=== PATIENT | male | born 1970 | race Caucasian/White ===

== ENCOUNTER → 2021-03-08 | Outpatient (REF) ==
--- NOTE | 2021-03-08 13:04 | REP ---
INDICATION: DDD COMPARISON: None. TECHNIQUE: Five views right knee. FINDINGS: There is no evidence of acute fracture, dislocation, or intrinsic bone disease.There is slight narrowing of the medial joint space. There is no radiographic evidence of a significant joint effusion. There are mild vascular calcifications in the posterior soft tissues. IMPRESSION: No fracture or dislocation. Very mild degenerative changes medial joint space. <Electronically signed by Jason Flores > 03/08/21 0018
--- NOTE | 2021-03-08 13:05 | REP ---
INDICATION: DDD. COMPARISON: None. TECHNIQUE: Three AP and lateral views lumbosacral spine. FINDINGS: There is no compression fracture or malalignment. There is normal lumbar lordosis. There is mild diffuse spurring. Very small Schmorl's nodes are seen at virtually all levels. The disc spaces are not significantly narrowed. There is sclerosis and spurring at the facets of L5-S1. The posterior elements are intact. IMPRESSION: Mild degenerative changes. No compression fracture or malalignment. <Electronically signed by Jason Flores > 03/08/21 [id number]
== END ==
LOC: M RAD 12:01
PROVIDERS: ATTEND Internal Medicine
DX: M17.11 Unilateral primary osteoarthritis, right knee (principal); M51.36 Other intervertebral disc degeneration, lumbar region

== ENCOUNTER → 2021-04-07 | Outpatient (REF) ==
--- NOTE | 2021-04-07 13:17 | REP ---
INDICATION: DDD COMPARISON: None. TECHNIQUE: Internal rotation, external rotation, and Y view. FINDINGS: Cortical irregularity and inferior spurring at the acromioclavicular joint is appreciated. Subacromial space is normal. There is subtle increased sclerosis and blunting to the ossified glenoid rim. The humeral head is normal. No periarticular calcifications or loose bodies are identified. IMPRESSION: Mild arthritic changes as noted above. <Electronically signed by Dioni Chapman > 04/07/21 [id number]
== END ==
LOC: M RAD 12:53
PROVIDERS: ATTEND Internal Medicine
DX: M19.011 Primary osteoarthritis, right shoulder (principal)